=== PATIENT | female | born 1940 | race African-American/Black ===

== ENCOUNTER 2021-01-14 13:38 | Inpatient (IN) | payer OTHER, MEDICAID ==
[~2021-01-14] VITALS: Ht 170.2 cm; Wt 93.1 kg
[2021-01-14 14:55] LABS: BASOPHILS % 1.1 % (0.0-2.0); HEMATOCRIT. 38.4 % (36.0-48.0); HEMOGLOBIN. 12.6 g/dL (12.0-16.0); LYMPHOCYTES % 24.8 % (20.0-50.0); MEAN CORPUSCULAR VOLUME 82.3 fL (81.0-99.0); MEAN PLATELET VOLUME 8.6 fl (7.4-10.4); MONOCYTES % 9.7 % (2.0-8.0); NEUTROPHILS % 62.4 % (40.0-76.0); PLATELET 175 x1000/uL (130-400); RED BLOOD CELL COUNT 4.67 mill/uL (4.2-5.4); RED CELL DISTRIBUTION WIDTH 15.1 % (11.6-14.6)
[2021-01-14 15:01] LABS: CHLORIDE 107 mEq/L (98-107)
[2021-01-14 17:00] LABS: CLARITY URINE CLEAR (CLEAR); COLOR URINE YELLOW (YELLOW); KETONES URINE 1+ (NEGATIVE); LEUKOCYTE ESTERASE URINE TRACE (NEGATIVE); NITRITE URINE NEGATIVE (NEGATIVE); OCCULT BLOOD URINE TRACE (NEGATIVE); PROTEIN URINE 1+ (NEGATIVE); SPECIFIC GRAVITY URINE 1.021 (1.005-1.030)
[2021-01-14] MEDS ORDERED: HEPARIN 5000 UNITS/ML VIAL IV PRN ×4 (17:45→21:47)
[2021-01-14] MEDS ORDERED: HEPARIN 5000 UNITS/ML VIAL IV SCH (17:45)
[2021-01-14] MEDS ORDERED: *NO ASPIRIN X 24 HOURS XX STA (18:01)
[2021-01-14] MEDS ORDERED: ONDANSETRON HCL 4MG/2ML INJ IV PRN (18:15)
[2021-01-14] MEDS ORDERED: IPRATROPIUM/ALBUTEROL 0.5-3(2.5)MG/3ML NEB NEB PRN (18:15)
[2021-01-14] MEDS ORDERED: NITROGLYCERIN 0.4MG TABLET SL SL PRN (18:15)
[2021-01-14] MEDS ORDERED: DOCUSATE SODIUM 100MG CAPSULE PO PRN (18:15)
[2021-01-14] MEDS ORDERED: ACETAMINOPHEN 325MG TABLET PO PRN ×2 (18:15)
[2021-01-14] MEDS ORDERED: GUAIFENESIN 200MG/10ML SUGAR FREE UDC PO PRN (18:15)
[2021-01-14] MEDS ORDERED: ZOLPIDEM TARTRATE 5MG TABLET PO PRN (18:15)
[2021-01-14] MEDS ORDERED: TRAMADOL 50MG TABLET PO PRN (18:15)
[2021-01-14] MEDS ORDERED: MAGNESIUM/ALUMINUM HYDROXIDE/SIMETHICONE 30ML UDC PO PRN (18:15)
[2021-01-14] MEDS ORDERED: ENOXAPARIN 40MG/0.4ML SYR SUBCUT SCH (18:15)
[2021-01-14] MEDS ORDERED: CLONIDINE 0.1MG TABLET PO PRN (18:15)
[2021-01-14] MEDS ORDERED: NA PHOS,M-B/NA PHOS,DI-BA ENEMA 118ML PR PRN (18:15)
[2021-01-14] MEDS ORDERED: ALTEPLASE 100 MG in CONTAINER,EMPTY 1 BAG IV NR (18:30)
[2021-01-14] MEDS ORDERED: ALTEPLASE 100MG/VIAL IV NR (18:30)
[2021-01-14] MEDS: DEXT 5%/0.45% NACL 1000ML 1,000 ML IV SCH (18:50)
[2021-01-14 19:03] LABS: INR 1.5; PARTIAL THROMBOPLASTIN TIME 27.6 sec (23.4-31.0); PROTHROMBIN TIME 15.6 sec (9.6-11.0)
[2021-01-14 19:33] LABS: FOLIC ACID (FOLATE) SERUM 18.4 ng/mL (>5.38)
[2021-01-14] MEDS ORDERED: IOHEXOL-350 100 ML BOTTLE ONE (20:40)
[2021-01-14 21:58] LABS: INR 2.1; PROTHROMBIN TIME 21.3 sec (9.6-11.0)
[2021-01-14 22:10] LABS: PARTIAL THROMBOPLASTIN TIME 43.5 sec (23.4-31.0)
[2021-01-14] MEDS: FAMOTIDINE 20MG TABLET PO SCH (22:42)
[2021-01-14] MEDS: ASCORBIC ACID 500 MG TABLET PO SCH (22:43)
[2021-01-14] MEDS ORDERED: DEXTROSE 50% WATER 50ML SYRINGE IV PRN (22:45)
[2021-01-14] MEDS: HEPARIN 25,000 UNITS PREMIX 250 ML IV PRN (23:32)
[2021-01-14 23:40] LABS: *AMPHETAMINES SCREEN URINE NEGATIVE (NEGATIVE); *BARBITURATES SCREEN URINE NEGATIVE (NEGATIVE); *BENZODIAZEPINES SCREEN URINE NEGATIVE (NEGATIVE); *COCAINE SCREEN URINE NEGATIVE (NEGATIVE); METHADONE URINE SCREEN NEGATIVE (NEGATIVE); OPIATES URINE SCREEN NEGATIVE (NEGATIVE)
[2021-01-14 23:41] LABS: CANNABINOID URINE SCREEN NEGATIVE (NEGATIVE); PHENCYCLIDINE URINE SCREEN NEGATIVE (NEGATIVE)
[2021-01-15] VITALS (30 sets, daily range): BP systolic 114–156; BP diastolic 55–96
[2021-01-15 04:52] LABS: BASOPHILS % 0.5 % (0.0-2.0); CHLORIDE 108 mEq/L (98-107); HEMATOCRIT. 41.2 % (36.0-48.0); HEMOGLOBIN. 13.4 g/dL (12.0-16.0); LYMPHOCYTES % 14.5 % (20.0-50.0); MEAN CORPUSCULAR HEMOGLOBIN 26.8 pg (28.0-32.0); MEAN CORPUSCULAR VOLUME 82.7 fL (81.0-99.0); MEAN PLATELET VOLUME 8.1 fl (7.4-10.4); MONOCYTES % 7.1 % (2.0-8.0); NEUTROPHILS % 76.9 % (40.0-76.0); PLATELET 174 x1000/uL (130-400); RED BLOOD CELL COUNT 4.98 mill/uL (4.2-5.4); RED CELL DISTRIBUTION WIDTH 15.2 % (11.6-14.6)
[2021-01-15 04:58] LABS: PHOSPHORUS 3.5 mg/dL (2.5-4.9)
[2021-01-15] MEDS: DEXT 5%/0.45% NACL 1000ML 1,000 ML IV SCH ×2 (05:18→13:51)
[2021-01-15] MEDS: BLOOD SUGAR DIAGNOSTIC STRIP TEST SCH ×5 (06:36→20:30)
[2021-01-15] MEDS: INSULIN LISPRO 100 UNITS/ML SUBCUT SCH ×5 (07:05→20:34)
[2021-01-15] MEDS: ZINC SULFATE 220 MG ( 50 ) CAPSULE PO SCH (08:57)
[2021-01-15] MEDS: ASCORBIC ACID 500 MG TABLET PO SCH ×2 (08:57→20:15)
[2021-01-15] MEDS: CHOLECALCIFEROL (D3) 1000 UNIT TABLET PO SCH (08:57)
[2021-01-15] MEDS: FAMOTIDINE 20MG TABLET PO SCH ×2 (08:57→20:15)
[2021-01-15] MEDS ORDERED: HEPARIN 25,000 UNITS PREMIX 250 ML IV SCH (09:00)
[2021-01-15] MEDS ORDERED: LIDOCAINE HCL 1% 20ML VIAL (Pyxis) INJ ONE (14:43)
[2021-01-15] MEDS: HEPARIN 25,000 UNITS PREMIX 250 ML IV PRN (17:47)
[2021-01-16] VITALS (31 sets, daily range): BP systolic 101–134; BP diastolic 51–75
[2021-01-16 06:05] LABS: CHLORIDE 106 mEq/L (98-107)
[2021-01-16 06:59] LABS: BASOPHILS % 0.9 % (0.0-2.0); EOSINOPHILS % 4.5 % (0.0-5.0); HEMATOCRIT. 37.5 % (36.0-48.0); HEMOGLOBIN. 12.4 g/dL (12.0-16.0); LYMPHOCYTES % 30.4 % (20.0-50.0); MEAN CORPUSCULAR HEMOGLOBIN 27.1 pg (28.0-32.0); MEAN PLATELET VOLUME 8.7 fl (7.4-10.4); MONOCYTES % 10.9 % (2.0-8.0); NEUTROPHILS % 53.3 % (40.0-76.0); PLATELET 163 x1000/uL (130-400); RED BLOOD CELL COUNT 4.58 mill/uL (4.2-5.4); RED CELL DISTRIBUTION WIDTH 15.4 % (11.6-14.6)
[2021-01-16] MEDS: BLOOD SUGAR DIAGNOSTIC STRIP TEST SCH ×4 (08:09→21:43)
[2021-01-16] MEDS: FAMOTIDINE 20MG TABLET PO SCH ×2 (08:10→21:43)
[2021-01-16] MEDS: ZINC SULFATE 220 MG ( 50 ) CAPSULE PO SCH (08:10)
[2021-01-16] MEDS: ASCORBIC ACID 500 MG TABLET PO SCH ×2 (08:10→21:43)
[2021-01-16] MEDS: CHOLECALCIFEROL (D3) 1000 UNIT TABLET PO SCH (08:10)
[2021-01-16] MEDS: INSULIN LISPRO 100 UNITS/ML SUBCUT SCH ×4 (08:11→21:44)
[2021-01-16 11:51] LABS: INR 1.2; PROTHROMBIN TIME 12.5 sec (9.6-11.0)
[2021-01-16] MEDS: SPIRONOLACTONE 25MG TABLET PO SCH (12:40)
[2021-01-16] MEDS: ENOXAPARIN 80MG/0.8ML SYR SUBCUT SCH ×2 (12:40→21:43)
[2021-01-16] MEDS ORDERED: FUROSEMIDE 40MG/4ML VIAL IVP NR (12:45)
[2021-01-17] VITALS (24 sets, daily range): BP systolic 114–140; BP diastolic 48–107
[2021-01-17 05:56] LABS: CHLORIDE 107 mEq/L (98-107)
[2021-01-17 05:58] LABS: BASOPHILS % 0.8 % (0.0-2.0); EOSINOPHILS % 4.1 % (0.0-5.0); HEMATOCRIT. 36.1 % (36.0-48.0); HEMOGLOBIN. 11.9 g/dL (12.0-16.0); LYMPHOCYTES % 33.8 % (20.0-50.0); MEAN CORPUSCULAR HEMOGLOBIN 26.9 pg (28.0-32.0); MEAN CORPUSCULAR VOLUME 81.4 fL (81.0-99.0); MEAN PLATELET VOLUME 8.4 fl (7.4-10.4); MONOCYTES % 9.9 % (2.0-8.0); NEUTROPHILS % 51.4 % (40.0-76.0); PLATELET 184 x1000/uL (130-400); RED BLOOD CELL COUNT 4.43 mill/uL (4.2-5.4); RED CELL DISTRIBUTION WIDTH 14.8 % (11.6-14.6)
[2021-01-17 06:18] LABS: INR 1.1; PARTIAL THROMBOPLASTIN TIME 34.6 sec (23.4-31.0); PROTHROMBIN TIME 11.9 sec (9.6-11.0)
[2021-01-17] MEDS: BLOOD SUGAR DIAGNOSTIC STRIP TEST SCH ×4 (07:58→21:52)
[2021-01-17] MEDS: FAMOTIDINE 20MG TABLET PO SCH ×2 (08:12→20:02)
[2021-01-17] MEDS: SPIRONOLACTONE 25MG TABLET PO SCH (08:12)
[2021-01-17] MEDS: ZINC SULFATE 220 MG ( 50 ) CAPSULE PO SCH (08:12)
[2021-01-17] MEDS: CHOLECALCIFEROL (D3) 1000 UNIT TABLET PO SCH (08:12)
[2021-01-17] MEDS: ASCORBIC ACID 500 MG TABLET PO SCH ×2 (08:12→20:02)
[2021-01-17] MEDS: ENOXAPARIN 80MG/0.8ML SYR SUBCUT SCH ×2 (08:20→20:02)
[2021-01-17] MEDS: INSULIN LISPRO 100 UNITS/ML SUBCUT SCH ×4 (08:21→20:03)
[2021-01-18] VITALS (23 sets, daily range): BP systolic 109–150; BP diastolic 63–102
[2021-01-18 06:47] LABS: BASOPHILS % 1.1 % (0.0-2.0); EOSINOPHILS % 4.6 % (0.0-5.0); HEMOGLOBIN. 11.7 g/dL (12.0-16.0); LYMPHOCYTES % 35.7 % (20.0-50.0); MEAN CORPUSCULAR HEMOGLOBIN 27.1 pg (28.0-32.0); MEAN CORPUSCULAR VOLUME 81.2 fL (81.0-99.0); MEAN PLATELET VOLUME 8.1 fl (7.4-10.4); MONOCYTES % 12.6 % (2.0-8.0); PLATELET 198 x1000/uL (130-400); RED BLOOD CELL COUNT 4.31 mill/uL (4.2-5.4)
[2021-01-18 06:51] LABS: CHLORIDE 108 mEq/L (98-107)
[2021-01-18] MEDS: BLOOD SUGAR DIAGNOSTIC STRIP TEST SCH ×4 (08:33→21:31)
[2021-01-18] MEDS: INSULIN LISPRO 100 UNITS/ML SUBCUT SCH ×4 (08:45→21:19)
[2021-01-18] MEDS: FAMOTIDINE 20MG TABLET PO SCH ×2 (08:46→21:18)
[2021-01-18] MEDS: ZINC SULFATE 220 MG ( 50 ) CAPSULE PO SCH (08:46)
[2021-01-18] MEDS: CHOLECALCIFEROL (D3) 1000 UNIT TABLET PO SCH (08:46)
[2021-01-18] MEDS: SPIRONOLACTONE 25MG TABLET PO SCH (08:46)
[2021-01-18] MEDS: ASCORBIC ACID 500 MG TABLET PO SCH ×2 (08:47→21:18)
[2021-01-18] MEDS: ENOXAPARIN 80MG/0.8ML SYR SUBCUT SCH ×2 (08:47→21:18)
[2021-01-19] VITALS (12 sets, daily range): BP systolic 120–141; BP diastolic 60–77
[2021-01-19] MEDS: BLOOD SUGAR DIAGNOSTIC STRIP TEST SCH ×4 (07:30→21:27)
[2021-01-19] MEDS: INSULIN LISPRO 100 UNITS/ML SUBCUT SCH ×4 (09:31→21:26)
[2021-01-19] MEDS: ENOXAPARIN 80MG/0.8ML SYR SUBCUT SCH ×2 (09:33→21:23)
[2021-01-19] MEDS: ASCORBIC ACID 500 MG TABLET PO SCH ×2 (09:33→21:23)
[2021-01-19] MEDS: ZINC SULFATE 220 MG ( 50 ) CAPSULE PO SCH (09:34)
[2021-01-19] MEDS: FAMOTIDINE 20MG TABLET PO SCH ×2 (09:34→21:23)
[2021-01-19] MEDS: SPIRONOLACTONE 25MG TABLET PO SCH (09:34)
[2021-01-19] MEDS: CHOLECALCIFEROL (D3) 1000 UNIT TABLET PO SCH (09:41)
[2021-01-19] MEDS ORDERED: NALOXONE HCL 0.4MG/ML VIAL IV PRN (17:00)
[2021-01-19] MEDS ORDERED: ATOR10TA69 MT (19:14)
[2021-01-19] MEDS ORDERED: METF-414 MT (19:14)
[2021-01-19] MEDS ORDERED: GABA300S PO (19:14)
[2021-01-19] MEDS ORDERED: GLIP10TA10 PO (19:14)
[2021-01-19] MEDS ORDERED: NPH,100V SUBCUT (19:28)
[2021-01-19] MEDS ORDERED: HYDR25TA PO (19:28)
[2021-01-20] VITALS (11 sets, daily range): BP systolic 116–141; BP diastolic 24–93
[2021-01-20] MEDS: BLOOD SUGAR DIAGNOSTIC STRIP TEST SCH ×4 (07:30→21:00)
[2021-01-20] MEDS: ASCORBIC ACID 500 MG TABLET PO SCH ×2 (09:00→21:07)
[2021-01-20] MEDS: ZINC SULFATE 220 MG ( 50 ) CAPSULE PO SCH (09:16)
[2021-01-20] MEDS: FAMOTIDINE 20MG TABLET PO SCH ×2 (09:16→21:07)
[2021-01-20] MEDS: SPIRONOLACTONE 25MG TABLET PO SCH (09:16)
[2021-01-20] MEDS: CHOLECALCIFEROL (D3) 1000 UNIT TABLET PO SCH (09:16)
[2021-01-20] MEDS: ENOXAPARIN 80MG/0.8ML SYR SUBCUT SCH ×2 (09:17→21:07)
[2021-01-20] MEDS: INSULIN LISPRO 100 UNITS/ML SUBCUT SCH ×4 (09:19→21:36)
[2021-01-21] VITALS (7 sets, daily range): BP systolic 115–141; BP diastolic 62–74
[2021-01-21] MEDS: INSULIN LISPRO 100 UNITS/ML SUBCUT SCH ×4 (06:19→21:17)
[2021-01-21] MEDS: BLOOD SUGAR DIAGNOSTIC STRIP TEST SCH ×4 (07:10→20:33)
[2021-01-21] MEDS: CHOLECALCIFEROL (D3) 1000 UNIT TABLET PO SCH (09:32)
[2021-01-21] MEDS: FAMOTIDINE 20MG TABLET PO SCH ×2 (09:32→21:16)
[2021-01-21] MEDS: ASCORBIC ACID 500 MG TABLET PO SCH ×2 (09:32→21:11)
[2021-01-21] MEDS: ZINC SULFATE 220 MG ( 50 ) CAPSULE PO SCH (09:32)
[2021-01-21] MEDS: SPIRONOLACTONE 25MG TABLET PO SCH (09:33)
[2021-01-21] MEDS: ENOXAPARIN 80MG/0.8ML SYR SUBCUT SCH ×2 (09:33→21:11)
[2021-01-22 04:00] VITALS: BP 103/56
[2021-01-22] MEDS: BLOOD SUGAR DIAGNOSTIC STRIP TEST SCH ×2 (05:44→12:28)
[2021-01-22] MEDS: INSULIN LISPRO 100 UNITS/ML SUBCUT SCH ×2 (06:18→12:34)
[2021-01-22 08:00] VITALS: BP 132/69
[2021-01-22] MEDS: FAMOTIDINE 20MG TABLET PO SCH (09:09)
[2021-01-22] MEDS: ZINC SULFATE 220 MG ( 50 ) CAPSULE PO SCH (09:09)
[2021-01-22] MEDS: CHOLECALCIFEROL (D3) 1000 UNIT TABLET PO SCH (09:09)
[2021-01-22] MEDS: ASCORBIC ACID 500 MG TABLET PO SCH (09:09)
[2021-01-22] MEDS: ENOXAPARIN 80MG/0.8ML SYR SUBCUT SCH (09:10)
[2021-01-22] MEDS: SPIRONOLACTONE 25MG TABLET PO SCH (09:15)
[2021-01-22 11:30] VITALS: BP 132/69
== END 2021-01-22 13:32 | disposition home or self-care (01) | DRG 175 ==
LOC: ER 13:38 → EDBEDREQ 15:32 → MICUSO 17:42 → EDBEDREQSVC 17:48 → EDBEDREQTM 17:48 → EDBEDREQ 17:48 → CVICU 01-15 07:18 → 5EST 01-18 16:35 → 8WST 01-20 23:47
PROVIDERS: ADMIT Internal Medicine; ATTEND Internal Medicine
PROC: 5A12012 Performance of Cardiac Output, Single, Manual (ICD-10-PCS; principal; 2021-01-14)
PROC: 3E03317 Introduction of Other Thrombolytic into Peripheral Vein, Percutaneous Approach (ICD-10-PCS; 2021-01-14)
PROC: 05H333Z Insertion of Infusion Device into Right Innominate Vein, Percutaneous Approach (ICD-10-PCS; 2021-01-15)
PROC: B54MZZA Ultrasonography of Right Upper Extremity Veins, Guidance (ICD-10-PCS; 2021-01-15)
DX: I26.92 Saddle embolus of pulmonary artery without acute cor pulmonale (principal); I21.A1 Myocardial infarction type 2; I46.9 Cardiac arrest, cause unspecified; J96.01 Acute respiratory failure with hypoxia; I50.33 Acute on chronic diastolic (congestive) heart failure; E44.0 Moderate protein-calorie malnutrition; I11.0 Hypertensive heart disease with heart failure; Z20.822 Contact with and (suspected) exposure to COVID-19; I50.810 Right heart failure, unspecified; E11.65 Type 2 diabetes mellitus with hyperglycemia; E83.51 Hypocalcemia; E66.9 Obesity, unspecified; I27.81 Cor pulmonale (chronic); I50.82 Biventricular heart failure; R26.2 Difficulty in walking, not elsewhere classified; Z68.32 Body mass index [BMI] 32.0-32.9, adult
CPT/HCPCS: 36415; 71045; 71275; 76937; 80048; 80053; 80061; 80305; 81003; 82607; 82746; 82962; 83036; 83540; 83550; 83735; 83880; 84100; 84145; 84484; 85025; 87426; 93005; 93306; 93970; 97162; 97166; 99291; A6261; C1725; J1644; J1650; J1815; J1940; J2997; J3490; J7060; Q9967